=== PATIENT | male | born 1995 | race Two or more races ===

== ENCOUNTER 2016-03-02 23:13 | Emergency (ER) | payer OTHER ==
[~2016-03-02] VITALS: Ht 182.9 cm; Wt 90.7 kg
[~2016-03-02 23:13] MED LIST: BENZ100C PO; NAPR550T PO; OMEP20TA PO; SUCR1TAB29 PO; TRAM50TA PO
[2016-03-03 00:51] LABS: BASO # 0.1 x10^3/uL (0.0-0.2); BASO % 1 % (0-3); EOS % 1 % (0-3); HEMATOCRIT 46.9 % (39.0-53.0); HEMOGLOBIN 15.7 g/dL (13.0-17.5); LYMPH # 2.5 x10^3/uL (1.0-4.8); LYMPH % 25 % (24-48); MEAN CORPUSCULAR HEMOGLOBIN 29 pg (25-35); MEAN CORPUSCULAR HGB CONC 34 g/dL (31-37); MEAN CORPUSCULAR VOLUME 87 fL (79-100); MONO % 10 % (0-9); NEUT % 64 % (31-73); PLATELET COUNT 250 x10^3/uL (140-400); RED BLOOD COUNT 5.38 x10^6/uL (4.30-5.70); RED CELL DISTRIBUTION WIDTH 12.7 % (11.5-14.5); WHITE BLOOD COUNT 9.8 x10^3/uL (4.0-11.0)
[2016-03-03 00:53] LABS: BILIRUBIN,URINE NEGATIVE (NEG); GLUCOSE,URINE NEGATIVE (NEG); NITRITE,URINE NEGATIVE (NEG); PH,URINE 5.5; PROTEIN,URINE NEGATIVE (NEG-TRACE); UROBILINOGEN,URINE 0.2 mg/dL (0.2 mg/dL)
[2016-03-03] MEDS ORDERED: FENTANYL PF 100 MCG/2 ML VIAL. IV ONE (01:00)
[2016-03-03] MEDS ORDERED: ONDANSETRON PF 4 MG/2 ML VIAL. IV ONE (01:00)
[2016-03-03] MEDS ORDERED: IV NORMAL SALINE 1000ML BAG 1,000 ML IV SCH (01:00)
[2016-03-03 01:11] LABS: ALBUMIN 4.2 g/dL (3.4-5.0); ALBUMIN/GLOBULIN RATIO 1.2 (1.0-1.7); CALCIUM 9.3 mg/dL (8.5-10.1); GFR 93.4; TOTAL BILIRUBIN 0.5 mg/dL (0.2-1.0); TOTAL PROTEIN 7.7 g/dL (6.4-8.2)
[2016-03-03 01:14] LABS: BACTERIA,URINE 0 /HPF (0-FEW); RBC,URINE OCC /HPF (0-2); SQUAMOUS EPITHELIAL CELL,UR FEW /LPF; WBC,URINE OCC /HPF (0-4)
[2016-03-03] MEDS ORDERED: CONTRAST GIVEN MC PRN (01:30)
[2016-03-03] MEDS ORDERED: IOHEXOL 300 MG/ML 75 ML VIAL IV ONE (01:30)
--- NOTE | 2016-03-03 01:31 | PHYS DOC ---
Past Medical History Past Medical History: No Pertinent History Past Surgical History: Tonsillectomy Alcohol Use: None Drug Use: None Adult General Chief Complaint Chief Complaint: ABDOMINAL PAIN HPI HPI Patient is a 20 year old male presents the emergency Department today with complaint of right lower quadrant pain 4 days. Patient denies fevers, chills, nausea, vomiting, diarrhea or constipation. Patient denies any history gastrointestinal diseases. Patient denies any history of gastrointestinal surgeries. Denies any previous history of bowel obstructions. Patient reports his last by mouth intake was 9 PM last night. He reports his last bowel movement was 5 PM yesterday evening. He states this was normal. Patient also denies dysuria, hematuria, flank pain, testicular penile pain. Denies any penile discharge. Review of Systems Review of Systems Constitutional: Denies fever or chills [] Eyes: Denies change in visual acuity, redness, or eye pain [] HENT: Denies nasal congestion or sore throat [] Respiratory: Denies cough or shortness of breath [] Cardiovascular: No additional information not addressed in HPI [] GI: Denies abdominal pain, nausea, vomiting, bloody stools or diarrhea [] : Denies dysuria or hematuria [] Musculoskeletal: Denies back pain or joint pain [] Integument: Denies rash or skin lesions [] Neurologic: Denies headache, focal weakness or sensory changes [] Endocrine: Denies polyuria or polydipsia [] Current Medications Current Medications Current Medications Medications (Trade) Dose Ordered Sig/Debbi Start Time Stop Time Status Last Admin Dose Admin Fentanyl Citrate (Fentanyl 2ml Vial) 50 mcg 1X ONCE 03/03/16 01:00 03/03/16 01:01 DC Info (Do NOT chart on this entry -- for MONITORING) 1 each PRN DAILY PRN 03/03/16 01:30 03/05/16 01:29 Iohexol (Omnipaque 300 Mg/ml) 75 ml 1X ONCE 03/03/16 01:30 03/03/16 01:31 DC 03/03/16 01:29 75 ML Ondansetron HCl (Zofran) 4 mg 1X ONCE 03/03/16 01:00 03/03/16 01:01 DC 03/03/16 01:00 4 MG Sodium Chloride (Iv Sodium Chloride 0.9% 1000ml Bag) 1,000 ml @ 1,000 mls/hr Q1H 03/03/16 01:00 03/03/16 01:59 DC 03/03/16 00:59 1,000 MLS/HR Allergies Allergies Allergies Coded Allergies Type Severity Reaction Last Updated Verified No Known Allergies Allergy Unknown 06/12/15 Yes Physical Exam Physical Exam Constitutional: Well developed, well nourished, no acute distress, non-toxic appearance. Patient is afebrile. Patient is sitting in a low semi-Fowlers position in no acute distress. HENT: Normocephalic, atraumatic, bilateral external ears normal, oropharynx moist, no oral exudates, nose normal. Eyes: PERRLA, EOMI, conjunctiva normal, no discharge. [] Neck: Normal range of motion, no tenderness, supple, no stridor. Cardiovascular:Heart rate regular rhythm, no murmur [] Lungs & Thorax: Bilateral breath sounds clear to auscultation [] Abdomen: Abdomen is soft and nondistended. There are normoactive bowel sounds in all 4 quadrants. There is no palpable defect to the abdominal wall or pulsatile mass. Patient complains of pain in the right lower quadrant area McBurney's point. There is no guarding. There is no rebound. Heel tap is negative. Testes are descended bilaterally and normal lie and nontender to palpation. Skin: Warm, dry, no erythema, no rash. [] Back: No tenderness, no CVA tenderness. Extremities: No tenderness, no cyanosis, no clubbing, ROM intact, no edema. [] Neurologic: Alert and oriented X 3, normal motor function, normal sensory function, no focal deficits noted. [] Psychologic: Affect normal, judgement normal, mood normal. [] Current Patient Data Vital Signs Vital Signs Date Time Temp Pulse Resp B/P Pulse Ox O2 Delivery O2 Flow Rate FiO2 03/02/16 23:39 98.4 96 18 142/72 98 Room Air 98.4 Lab Values Laboratory Tests Test 03/02/16 23:13 03/02/16 23:30 White Blood Count 9.8x10^3/uL (4.0-11.0) Red Blood Count 5.38x10^6/uL (4.30-5.70) Hemoglobin 15.7g/dL (13.0-17.5) Hematocrit 46.9% (39.0-53.0) Mean Corpuscular Volume 87fL (79-100) Mean Corpuscular Hemoglobin 29pg (25-35) Mean Corpuscular Hemoglobin Concent 34g/dL (31-37) Red Cell Distribution Width 12.7% (11.5-14.5) Platelet Count 250x10^3/uL (140-400) Neutrophils (%) (Auto) 64% (31-73) Lymphocytes (%) (Auto) 25% (24-48) Monocytes (%) (Auto) 10% (0-9) H Eosinophils (%) (Auto) 1% (0-3) Basophils (%) (Auto) 1% (0-3) Neutrophils # (Auto) 6.2x10^3uL (1.8-7.7) Lymphocytes # (Auto) 2.5x10^3/uL (1.0-4.8) Monocytes # (Auto) 0.9x10^3/uL (0.0-1.1) Eosinophils # (Auto) 0.1x10^3/uL (0.0-0.7) Basophils # (Auto) 0.1x10^3/uL (0.0-0.2) Sodium Level 141mmol/L (136-145) Potassium Level 3.0mmol/L (3.5-5.1) L Chloride Level 103mmol/L (98-107) Carbon Dioxide Level 27mmol/L (21-32) Anion Gap 11 (6-14) Blood Urea Nitrogen 19mg/dL (8-26) Creatinine 1.0mg/dL (0.7-1.3) Estimated GFR (Cockcroft-Gault) 93.4 BUN/Creatinine Ratio 19 (6-20) Glucose Level 102mg/dL (70-99) H Calcium Level 9.3mg/dL (8.5-10.1) Total Bilirubin 0.5mg/dL (0.2-1.0) Aspartate Amino Transferase (AST) 41U/L (15-37) H Alanine Aminotransferase (ALT) 42U/L (16-63) Alkaline Phosphatase 61U/L (46-116) Total Protein 7.7g/dL (6.4-8.2) Albumin 4.2g/dL (3.4-5.0) Albumin/Globulin Ratio 1.2 (1.0-1.7) Urine Collection Type Unknown Urine Color Yellow Urine Clarity Clear Urine pH 5.5 Urine Specific [place] 1.020 Urine Protein Negativemg/dL (NEG-TRACE) Urine Glucose (UA) Negativemg/dL (NEG) Urine Ketones (Stick) Negativemg/dL (NEG) Urine Blood Negative (NEG) Urine Nitrite Negative (NEG) Urine Bilirubin Negative (NEG) Urine Urobilinogen Dipstick 0.2mg/dL (0.2 mg/dL) Urine Leukocyte Esterase Negative (NEG) Urine RBC Occ/HPF (0-2) Urine WBC Occ/HPF (0-4) Urine Squamous Epithelial Cells Few/LPF Urine Bacteria 0/HPF (0-FEW) Urine Mucus Mod/LPF Laboratory Tests 03/02/16 23:13 Laboratory Tests 03/02/16 23:13 EKG EKG [] Radiology/Procedures Radiology/Procedures [] Course & Med Decision Making Course & Med Decision Making Case was staffed with Dr. Russell at 0120. He has been made aware of patient's history and physical exam. Laboratory work pending include CBC, CMP and UA. Imaging pending is IV contrast CT scan of patient's abdomen and pelvis. This is a 20-year-old Jolin who presents here today complaining of right lower quadrant pain. Sign out was obtained from [facility] with labs and CAT scan pending. Patient's exam was concerning for possible appendicitis. Patient reports she been having right lower quadrant pain. Patient's CT scan of his abdomen was unremarkable. CT scan revealed no acute intra-abdominal abnormalities. Revealed a normal-appearing appendix. Patient's labs were unremarkable except for mildly low potassium level. Patient was reexamined at 245. Patient to doll exam currently is soft nondistended no rebound or guarding. Patient does have some mild right lower quadrant tenderness to palpation. Patient's U exam was normal. I discussed with the patient plan of discharging home with medicines help his pain and to follow-up with his primary care doctor. The patient does not have a PCP so he is instructed to return to the ER if the pain worsens or if he has any fevers. Patient be sent home on Ultram. Dragon Disclaimer Dragon Disclaimer This electronic medical record was generated, in whole or in part, using a voice recognition dictation system. Departure Departure Impression: Primary Impression: Abdominal pain Disposition: HOME, SELF-CARE Condition: IMPROVED Referrals: NO PCP (PCP) Patient Instructions: Abdominal Pain (Nonspecific) Scripts Ondansetron (Zofran Odt)4 Mg Tab.rapdis1 Tab SL Q6HRS PRN NAUSEA #12 TAB Prov:ISH RUSSELL MD 03/03/16 Tramadol Hcl (Ultram)50 Mg Tablet1 Tab PO Q6HRS #14 TAB Prov:ISH RUSSELL MD 03/03/16 NINFA DONAHUE Mar 03, 2016 01:30 ISH RUSSELL MD Mar 03, 2016 02:48
--- NOTE | 2016-03-03 02:23 | RAD ---
Examination: CT of the abdomen pelvis with IV contrast HISTORY History of right lower cord abdomen pain for 4 days. COMPARISON 06/12/2015. TECHNIQUE Axial CT images of the abdomen pelvis were performed with IV contrast. Coronal sagittal reformats were performed. Exposure: One or more of the following dose reduction technique were utilized for this examination: 1. Automated exposure control. 2.Adjustment of MA and /or KV according to patient size. 3. Use of iterative reconstruction technique. Findings : The visualized bibasilar lungs grossly appears unremarkable. No evidence of free air identified in the abdomen. Small hiatal hernia. The distal esophagus is mildly distended with fluid. The visualized liver, spleen, adrenals grossly appears unremarkable. The gallbladder is minimally distended. The stomach is mildly distended. The visualized pancreas grossly appears unremarkable . The small bowel is nondilated. The appendix is normal. Feces and gas noted in the colon. The bilateral kidneys enhance symmetrically. Mild prominent appearing extrarenal pelvis identified. The urinary bladder is mildly distended. The caliber of the aorta grossly appears unremarkable. No evidence of lytic bony destructive lesion identified. IMPRESSION 1. No acute intra-abdominal findings. Normal-appearing appendix. 2. Mild prominent appearing left extrarenal pelvis similar to prior exam. Electronically signed by: Alvarado Arechiga (Mar 03, 2016 02:22:20)
[2016-03-03 02:30] VITALS: BP 120/59
[2016-03-03] MEDS ORDERED: ONDA4TAB10 SL (02:48)
[2016-03-03] MEDS ORDERED: TRAM-29 PO (02:48)
[2016-03-03] MEDS ORDERED: POTASSIUM CHLORIDE 20 MEQ TABLET.ER. PO ONE (03:15)
== END 2016-03-03 03:12 | disposition home or self-care (01) ==
LOC: ER 23:13
DX: R10.31 Right lower quadrant pain (principal)
CPT/HCPCS: 36415; 74177; 80053; 81001; 85027; 96361; 96374; 99285; J2405; J7030; Q9967